=== PATIENT | male | born 1945 | race American Indian/Alaskan Native ===

== ENCOUNTER 2020-07-02 08:45 | Emergency (ER) | payer OTHER ==
[~2020-07-02] VITALS: Ht 175.3 cm; Wt 104.3 kg
[2020-07-02] MEDS ORDERED: XYZAL5 MG (09:06)
[2020-07-02] MEDS ORDERED: HYDROCHLOROTHIA25 MG (09:07)
[2020-07-02] MEDS ORDERED: CLONAZEPAM0.25 MG (09:08)
[2020-07-02] MEDS ORDERED: METFORMIN HCL500 MG (09:08)
[2020-07-02] MEDS ORDERED: CARVEDILOL ER40 MG (09:08)
[2020-07-02] MEDS ORDERED: AVAPRO300 MG (09:09)
[2020-07-02] MEDS ORDERED: MONTELUKAST SODI4 M1 (09:09)
[2020-07-02] MEDS ORDERED: PROSCAR5 MG (09:10)
[2020-07-02] MEDS ORDERED: CUTIVATE30 GM (09:11)
[2020-07-02] MEDS ORDERED: GRALISE600 MG (09:12)
[2020-07-02] MEDS ORDERED: CRESTOR10 MG (09:12)
[2020-07-02] MEDS ORDERED: 24 HOUR ALLER15.8 ML (09:12)
[2020-07-02] MEDS ORDERED: TAMS0.4C (09:13)
[2020-07-02] MEDS ORDERED: IRO-PLEX LIQUI120 ML (09:13)
== END 2020-07-02 20:44 | disposition home or self-care (01) ==
LOC: ER 08:45
DX: D50.8 Other iron deficiency anemias (principal); R31.29 Other microscopic hematuria; Z03.818 Encounter for observation for suspected exposure to other biological agents ruled out